=== PATIENT | female | born 1995 | race Two or more races ===

== ENCOUNTER 2018-12-08 10:00 | Observation (INO) | payer MEDICAID ==
[~2018-12-08] VITALS: Ht 157.5 cm; Wt 102.1 kg
[2018-12-08] MEDS ORDERED: CEFTRIAXONE SODIUM 2 GM in D5W 5% 50 ML IV ONE (11:15)
[2018-12-08] MEDS ORDERED: cefTRIAXone 1GM/50ML D5W 100 ML IV ONE (11:34)
[2018-12-08] MEDS ORDERED: LIDOCAINE IM ONE ×2 (11:45→12:00)
[2018-12-08] MEDS ORDERED: CEFTRIAXONE IM ONE ×2 (11:45→12:00)
== END 2018-12-08 12:53 | disposition home or self-care (01) | DRG 566 ==
LOC: LDRP 10:00
PROVIDERS: ADMIT Specialist; ATTEND Specialist
DX: O23.42 Unspecified infection of urinary tract in pregnancy, second trimester (principal); O99.322 Drug use complicating pregnancy, second trimester; O26.892 Other specified pregnancy related conditions, second trimester; F14.90 Cocaine use, unspecified, uncomplicated; R10.2 Pelvic and perineal pain; Z3A.27 27 weeks gestation of pregnancy; Z87.891 Personal history of nicotine dependence
CPT/HCPCS: 59025; 81002; 96372; G0378; J0696; J7060

== ENCOUNTER 2019-01-11 09:08 | Observation (INO) | payer MEDICAID ==
[2019-01-11] MEDS ORDERED: PREN-153 OR (09:44)
== END 2019-01-11 10:32 | disposition home or self-care (01) | DRG 563 ==
LOC: LDRP 09:08
PROVIDERS: ADMIT Obstetrics & Gynecology; ATTEND Obstetrics & Gynecology
DX: O60.03 Preterm labor without delivery, third trimester (principal); Z3A.34 34 weeks gestation of pregnancy; Z87.891 Personal history of nicotine dependence
CPT/HCPCS: 59025; 81002; G0378

== ENCOUNTER 2019-01-21 19:50 | Observation (INO) | payer MEDICAID ==
[~2019-01-21] VITALS: Ht 157.5 cm; Wt 81.6 kg
[~2019-01-21 19:50] MED LIST: PREN-153 OR
[2019-01-21] MEDS ORDERED: LACTATED RINGER'S 1,000 ML IV ONE (21:05)
[2019-01-21] MEDS ORDERED: LACTATED RINGER'S 1,000 ML IV SCH (21:05)
[2019-01-21] MEDS ORDERED: TERBUTALINE SULFATE 1 MG/ML 1ML VIAL SC SCH (21:15)
== END 2019-01-21 22:46 | disposition home or self-care (01) | DRG 566 ==
LOC: LDRP 19:50
PROVIDERS: ADMIT Specialist; ATTEND Specialist
DX: O42.913 Preterm premature rupture of membranes, unspecified as to length of time between rupture and onset of labor, third trimester (principal); O34.63 Maternal care for abnormality of vagina, third trimester; Z3A.35 35 weeks gestation of pregnancy
CPT/HCPCS: 59025; 81002; 84112; G0378; 96365

== ENCOUNTER 2019-02-02 16:30 | Observation (INO) | payer MEDICAID | END 2019-02-02 18:07 | disposition home or self-care (01) | DRG 566 | LOC: LDRP 16:30 | PROVIDERS: ADMIT Obstetrics & Gynecology; ATTEND Obstetrics & Gynecology | DX: O62.9 Abnormality of forces of labor, unspecified (principal); O26.893 Other specified pregnancy related conditions, third trimester; N89.8 Other specified noninflammatory disorders of vagina; Z3A.37 37 weeks gestation of pregnancy | CPT/HCPCS: 59025; 81002; 84112; G0378 ==

== ENCOUNTER 2019-02-15 18:15 | Observation (INO) | payer MEDICAID | END 2019-02-15 19:11 | disposition home or self-care (01) | DRG 566 | LOC: LDRP 18:15 | PROVIDERS: ADMIT Specialist; ATTEND Specialist | DX: O62.9 Abnormality of forces of labor, unspecified (principal); Z3A.39 39 weeks gestation of pregnancy | CPT/HCPCS: 59025; 81002; G0378 ==

== ENCOUNTER 2019-02-24 07:55 | Inpatient (IN) | payer MEDICAID ==
[~2019-02-24] VITALS: Ht 157.5 cm; Wt 104.3 kg
[2019-02-24] MEDS ORDERED: LACTATED RINGER'S 1,000 ML IV SCH (08:18)
[2019-02-24] MEDS ORDERED: NALBUPHINE HCL 10 MG/1ml INJECTION IV PRN (08:30)
[2019-02-24] MEDS ORDERED: LIDOCAINE 2%HCL (LOCAL ANESTH.) INJ 20ML MDV ID ONE (08:30)
[2019-02-24] MEDS ORDERED: PHISODERM TOP SOLN 240ML BTL TOP PRN (08:30)
[2019-02-24] MEDS ORDERED: WITCH HAZEL-GLYCERIN PAD TOP PRN (08:30)
[2019-02-24] MEDS ORDERED: METHYLERGONOVINE MALEATE 0.2 MG/ML AMP IM PRN (08:30)
[2019-02-24] MEDS ORDERED: DERMOPLAST 60ML BOTTLE TOP PRN (08:30)
[2019-02-24 09:13] LABS: Albumin 2.9 g/dL (3.4-5.0); Calcium 8.4 mg/dL (8.5-10.1); Potassium 3.4 mmol/L (3.5-5.1)
[2019-02-24 09:15] LABS: INR 0.99 (0.9-1.15); Partial Thromboplastin Time 27.5 sec (23.64-32.05)
[2019-02-24 09:17] LABS: BUN/Creatinine Ratio 13.5; Bilirubin, Total 0.6 mg/dL (0.2-1.0); Total Protein 6.9 g/dL (6.4-8.2)
[2019-02-24 09:24] LABS: Basophils # (auto) 0.1 uL; Basophils % (auto) 0.7 % (0.0-2.0); Eosinophils # (auto) 0.2 uL; Eosinophils % (auto) 1.4 % (0.0-7.0); Hemoglobin 13.8 g/dL (12.2-16.2); Lymphocytes # (auto) 2.1 uL; Lymphocytes % (auto) 17.6 % (10.0-50.0); Mean Corpuscular Hemoglobin 30.5 pg (28.0-32.0); Mean Corpuscular Hgb Conc. 35.4 g/dL (32.0-36.0); Mean Corpuscular Volume 86.4 fL (80.0-100.0); Monocytes # (auto) 0.8 uL; Monocytes % (auto) 7.1 % (0.0-12.0); Neutrophils # (auto) 8.6 uL; Neutrophils % (auto) 73.2 % (37.0-80.0); Nucleated Red Blood Cells % 0.1 %; Platelet Count (auto) 179 10^3/uL (140-450); Red Blood Cells 4.52 10^6/uL (4.0-5.20); Red Cell Distribution Width 13.3 % (11.8-14.3); White Blood Cell 11.8 10^3/uL (4.4-10.8)
[2019-02-24 15:57] LABS: Urine Bacteria NONE SEEN /hpf (None Seen); Urine Blood Negative /uL (Negative); Urine Mucus FEW (None Seen); Urine Specific Gravity 1.021 (1.001-1.035); Urine WBC 1 /hpf (0 - 5)
[2019-02-24 16:11] LABS: Alcohol, Urine < 3.0 mg/dL (0-5); Amphetamine Screen, Urine NEGATIVE (NEGATIVE); Barbiturate Scree,Urine NEGATIVE (NEGATIVE); Benzodiazephine Screen, Urine NEGATIVE (NEGATIVE); Cannabinoid Screen, Urine NEGATIVE (NEGATIVE); Cocaine Screen, Urine NEGATIVE (NEGATIVE); Opiate Scree,Urine NEGATIVE (NEGATIVE); Phencyclidine Screen, Urine NEGATIVE (NEGATIVE)
[2019-02-24] MEDS ORDERED: ACETAMINOPHEN 325 MG TAB PO ONE (19:00)
[2019-02-24] MEDS ORDERED: PROMETHAZINE HCL 25 MG/ML 1ML IV PRN (20:15)
[2019-02-24] MEDS: PROMETHAZINE HCL 25 MG/ML 1ML IV PRN (20:21)
[2019-02-24] MEDS: BUTORPHANOL TARTRATE 2 MG/1 ML VIAL IM PRN (20:22)
[2019-02-24] MEDS: LACT. RINGERS/OXYTOCIN 20UNITS 1,000 ML IV SCH (21:57)
[2019-02-25] MEDS: BUTORPHANOL TARTRATE 2 MG/1 ML VIAL IM PRN (01:01)
[2019-02-25] MEDS: PROMETHAZINE HCL 25 MG/ML 1ML IV PRN (01:01)
[2019-02-25] MEDS: LACT. RINGERS/OXYTOCIN 20UNITS 1,000 ML IV SCH (03:42)
[2019-02-25] MEDS ORDERED: BUTORPHANOL TARTRATE 2 MG/1 ML VIAL ONE (05:40)
[2019-02-25] MEDS ORDERED: ePHEDrine SULFATE 50 MG/ML AMP IV ONE ×2 (07:15→08:30)
[2019-02-25] MEDS ORDERED: fentaNYL W ROPIVACAINE 150 ML EPI SCH ×2 (07:15→08:30)
[2019-02-25] MEDS ORDERED: NALOXONE HCL 0.4 MG/ML VIAL IV ONE (08:30)
[2019-02-25] MEDS ORDERED: SODIUM CHLORIDE 0.9% 500 ML IV PRN (08:30)
--- NOTE | 2019-02-25 09:00 | NUR ---
Teaching: Reviewed information in [facility] Beginnings booklet with patient. Discussed benefits of and risks associated with not . Discussed different positions, proper latch, feeding cues, and baby-led . Provided information of medication side effects related to . All questions and concerns addressed at this time. Patient verbalized understanding of information.
--- NOTE | 2019-02-25 10:50 | NUR ---
Ambulation: Patient OOB with standby assistance by RN. Patient ambulated to bathroom with steady gait. Patient able to void without difficulty. [facility] teaching provided with returned demonstration by patient. Clean gown provided and bed linen changed. Patient ambulated back to bed with steady gait and no distress noted.
--- NOTE | 2019-02-25 13:16 | NUR ---
Bottle-feeding Education: Patient encouraged to breastfeed. Benefits of and the risk of providing formula to was discussed. Patient verbalized understanding of the benefits and is aware of risk and insists on bottle-feeding. Formula provided and instruction on formula preperation from the New Beginning booklet reviewed with patient.
[2019-02-25] MEDS: IBUPROFEN 600 MG TAB PO PRN ×2 (14:00→18:47)
[2019-02-25 15:29] VITALS: BP 129/80
[2019-02-25 18:52] VITALS: BP 135/75
[2019-02-25 23:00] VITALS: BP 123/67
[2019-02-26 01:35] VITALS: BP 134/60
[2019-02-26] MEDS: IBUPROFEN 600 MG TAB PO PRN ×2 (03:20→11:44)
[2019-02-26 06:06] LABS: RPR Non Reactive (Non Reactive)
[2019-02-26 06:40] VITALS: BP 133/73
--- NOTE | 2019-02-26 09:08 | NUR ---
DR. CRUZ AT PT BEDSIDE, TRENDING VITAL SIGNS GIVEN. PT STATED THAT HER THROAT HAS DILLON "SORE FOR THE PAST 2 DAYS." ORDERS RECEIVED FROM DR. CRUZ TO DISCHARGE PATIENT HOME, FOLLOW UP IN OB CLINIC IN 2 WEEKS AND CALL IN A Z-PACK DIRECTED. READ BACK AND VERIFIED ORDERS. WILL CARRY OUT.
--- NOTE | 2019-02-26 09:46 | NUR ---
CALLED [facility] AT [phone], TONY DIRECTED CALLED IN, SPOKE WITH PHARMACIST MELYSSA.
--- NOTE | 2019-02-26 10:00 | NUR ---
PT NOTIFIED THAT HER Z-PACK WAS CALLED IN AND AGREES TO [facility] AND TAKE IT DIRECTED.
[2019-02-26 11:25] VITALS: BP 144/70
--- NOTE | 2019-02-26 11:30 | NUR ---
Discharge: Discharge instructions given as ordered. Pt encouraged to follow up with CABLE TECHNICIAN as instructed. All questions and concerns addressed. Patient verbalized understanding. Medication reconciliation completed and copy given to patient. Patient encouraged to prepare to depart unit.
[2019-02-26 12:58] VITALS: BP 132/68
--- NOTE | 2019-02-26 13:25 | NUR ---
Discharge: Patient taken to vehicle ambulatory via steady gait, pt declined wheelchair with all personal belongings, accompanied by staff and family members. No distress noted at time of departure, no adverse changes in status since initial assessment.
== END 2019-02-26 13:25 | disposition home or self-care (01) | DRG 560 ==
LOC: LDRP 07:55
PROVIDERS: ADMIT Specialist; ATTEND Specialist
PROC: 3E033VJ Introduction of Other Hormone into Peripheral Vein, Percutaneous Approach (ICD-10-PCS; 2019-02-24)
PROC: 10E0XZZ Delivery of Products of Conception, External Approach (ICD-10-PCS; principal; 2019-02-25)
PROC: 3E0R3BZ Introduction of Anesthetic Agent into Spinal Canal, Percutaneous Approach (ICD-10-PCS; 2019-02-25)
PROC: 00HU33Z Insertion of Infusion Device into Spinal Canal, Percutaneous Approach (ICD-10-PCS; 2019-02-25)
DX: O69.81X0 Labor and delivery complicated by cord around neck, without compression, not applicable or unspecified (principal); Z37.0 Single live birth; Z3A.40 40 weeks gestation of pregnancy
CPT/HCPCS: 36415; 59025; 59409; 62282; 80053; 80307; 81001; 81002; 84112; 85025; 85610; 85730; 86592; 86850; 86900; 86901; 96365; 96366; 96375; G0378; J2590; J3010